=== PATIENT | male | born 1990 | race Caucasian/White ===

== ENCOUNTER 2022-05-20 22:22 | Emergency (ER) | payer OTHER ==
[2022-05-20 23:13] LABS: BASOPHIL 0.2 % (0-2); EOSINOPHIL 0.1 % (0-5); HCT 45.9 % (42.0-52.0); HGB 16.9 g/dl (13.2-18.0); LYMPHOCYTE 10.8 % (15-48); MCH 32.7 pg (25.0-31.0); MCHC 36.8 g/dL (32.0-36.0); MCV 88.8 fL (78.0-100.0); MONOCYTE 2.7 % (0-12); MPV 9.2 fL (6.0-9.5); NEUTROPHIL 85.7 % (41-80); NRBC 0; PLT 206 K/uL (150-400); RBC 5.17 M/uL (4.70-6.00); RDW 11.5 % (11.5-14.0); WBC 9.9 K/uL (4.0-10.5)
[2022-05-20 23:31] LABS: ALBUMIN 4.5 g/dL (3.4-5.0); BILIRUBIN - TOTAL 1.4 mg/dL (0.2-1.0); BUN/CREAT RATIO (CALC) 16.1 RATIO; CREATININE 0.93 mg/dL (0.67-1.17); GLOBULIN (CALCULATION) 3.5 g/dL; POTASSIUM 3.8 mmol/L (3.5-5.1)
[2022-05-21] MEDS ORDERED: ONDANSETRON ODT4 MG PO (00:40)
== END 2022-05-21 01:23 | disposition home or self-care (01) ==
LOC: FER 22:22
PROVIDERS: Emergency Medicine
DX: R11.2 Nausea with vomiting, unspecified (principal); R19.7 Diarrhea, unspecified; R10.9 Unspecified abdominal pain; Z28.310 Unvaccinated for COVID-19
CPT/HCPCS: 36415; 80053; 83690; 85025; J1885; J2405; J7030; Q0169